=== PATIENT | female | born 1990 | race African-American/Black ===

== ENCOUNTER 2019-03-28 20:33 | Emergency (ER) | payer MEDICAID ==
[~2019-03-28] VITALS: Ht 160 cm; Wt 74.4 kg
[2019-03-28 20:49] VITALS: BP_SYST 163
--- NOTE | 2019-03-28 20:52 | NUR ---
ER Dr. Fulton at bedside examining patient.
--- NOTE | 2019-03-28 20:54 | NUR ---
Patient to ER bed 04 to gown for evaluation. Side rails up. Report given to PING Fernandez
--- NOTE | 2019-03-28 20:55 | NUR ---
Pt presents to ER with c/o flu like symptoms. Pt A&Ox4. Pt states last night her "body started hurting and started getting dizziness." Pt states she has a headache and "a bit of a cough." Pt states head pain is 6/10. Pt states sister in law was diagnosed with influenza type A last week. Pt denies SOB and chest pain. Will continue to monitor.
--- NOTE | 2019-03-28 21:49 | NUR ---
Collected urine specimen from pt.
[2019-03-28 22:27] VITALS: BP_SYST 155
--- NOTE | 2019-03-28 22:27 | NUR ---
Patient given written and verbal discharge instructions and verbalizes understanding. ER MD Fulton discussed with patient the results and treatment provided. Patient in stable condition. ID arm band removed. Rx of motrin and tamiflu given. Patient educated on pain management and to follow up with PMD. Pain Scale 0/10. Opportunity for questions provided and answered. Medication side effect fact sheet provided.
== END 2019-03-28 22:27 | disposition home or self-care (01) ==
LOC: SED 20:33
DX: J11.1 Influenza due to unidentified influenza virus with other respiratory manifestations (principal); I10 Essential (primary) hypertension
CPT/HCPCS: 36415; 81002; 81025; 86710; 99283